=== PATIENT | male | born 2000 | race Caucasian/White ===

== ENCOUNTER → 2024-06-28 | Day surgery (SDC) | payer BC ==
[~2024-06-28] MED LIST: ACETAMINOPHEN 1000 MG/100 ML 100 ML IV ONE; BUPIVACAINE LIPOSOME/PF 266 MG/20 ML IJ ONE; DEXAMETHASONE SOD PHOS INJ 4 MG/ML SDV ONE; DEXMEDETOMIDINE HCL 2 ML ONE; EPHEDRINE SULFATE INJ 50 MG/ML VIAL ONE; FENTANYL CITRATE/PF 100MCG/2 ML INJ ONE; LACTATED RINGER'S 1,000 ML ONE; LIDOCAINE HCL 2% LOCAL INJ 5 ML SDV VIAL INJ ONE; ONDANSETRON HCL INJ 2MG/ML 2ML 2 MG/ML VIAL ONE; PROPOFOL IV EMULSION 10 MG/ML 20 ML VIAL ONE; ROCURONIUM BROMIDE 1 ML IV ONE; SEVOFLURANE INHAL SOLN 250 ML PEN BTL ONE; SODIUM CHLORIDE 0.9% 100 ML ONE; SUCCINYLCHOLINE CHLORIDE 20 MG/ML 10ML VIAL ONE; SUGAMMADEX SODIUM 200 MG/2 ML VIAL IV ONE
[2024-06-28 10:56] VITALS: TEMP 97.7
[2024-06-28 11:45] VITALS: BP 149/90; PULSE 87; RESP 16; O2SAT 97
== END | disposition home or self-care (01) ==
LOC: OR 06:32
PROVIDERS: ATTEND Otolaryngology Otolaryngology/Facial Plastic Surgery
DX: J32.0 Chronic maxillary sinusitis (principal); J32.1 Chronic frontal sinusitis; J32.3 Chronic sphenoidal sinusitis; J32.2 Chronic ethmoidal sinusitis; J33.9 Nasal polyp, unspecified
CPT/HCPCS: 31259; 31267; 31276; 88305; 88312; J0131; J0330; J1100; J2003; J2405; J2704; J3010; J7050; J7121